=== PATIENT | female | born 1940 | race Caucasian/White ===

== ENCOUNTER → 2016-12-30 | Outpatient (CLI) | payer MEDICARE ==
--- NOTE | 2016-12-30 09:06 | XR ---
Left shoulder HISTORY: Bicipital tendinitis, left shoulder pain and strain 3 views of the left shoulder No comparisons Bone mineralization, joint spaces and alignment are maintained. Suspect a small distal acromial spur. Left lung apex as visualized is normal. Patient is post median sternotomy. Mild arthropathy present at the acromioclavicular joint. IMPRESSION: No acute abnormality. Additional findings above, correlate for impingement, follow-up MRI may be of benefit.
== END | disposition home or self-care (01) ==
LOC: RADXRMAIN 08:14
PROVIDERS: ATTEND Physician Assistant
DX: M75.22 Bicipital tendinitis, left shoulder (principal)

== ENCOUNTER → 2017-03-05 | Outpatient (CLI) | payer MEDICARE ==
--- NOTE | 2017-03-05 14:42 | MM ---
Reason for exam: additional evaluation requested from abnormal screening. Last mammogram was performed less than 1 month ago. History: Patient is postmenopausal. Benign stereotactic core biopsy of the right breast, May 18, 2003. Core biopsy of the right breast. Physical Findings: Nurse did not find any significant physical abnormalities on exam. MG 3D Work Up W/Cad LT CC, MLO, ML, spot compression CC, and spot compression MLO view(s) were taken of the left breast. Prior study comparison: February 23, 2017, bilateral MG screening mammo w CAD. December 07, 2015, bilateral MG 3d screening mammo w/cad. October 11, 2007, bilateral digital screening mammogram. There are scattered fibroglandular densities. Subareolar focal asymmetry shows increased density probably on the on the basis of the current mammographic technique, but was present back to 2007. No clear persisting abnormality seen on additional views. These results were verbally communicated with the patient and result sheet given to the patient on 03/05/17. ASSESSMENT: Incomplete: need additional imaging evaluation, BI-RAD 0 RECOMMENDATION: Ultrasound of the left breast. (periareolar).
--- NOTE | 2017-03-05 14:45 | USB ---
Reason for exam: additional evaluation requested from abnormal screening. History: Patient is postmenopausal. Benign stereotactic core biopsy of the right breast, May 18, 2003. Core biopsy of the right breast. US Breast Workup Limited LT Left breast demonstrates no cystic or solid lesion seen. A precautionary 6 month follow up is recommended. These results were verbally communicated with the patient and result sheet given to the patient on 03/05/17. ASSESSMENT: Probably benign, BI-RAD 3 RECOMMENDATION: Follow-up diagnostic mammogram of the left breast in 6 months.
== END | disposition home or self-care (01) ==
LOC: RADMAMWWP 13:20
PROVIDERS: ATTEND Family Medicine
DX: R92.8 Other abnormal and inconclusive findings on diagnostic imaging of breast (principal)
CPT/HCPCS: 76642; G0206; G0279

== ENCOUNTER → 2017-09-04 | Outpatient (CLI) | payer MEDICARE ==
--- NOTE | 2017-09-04 09:27 | MM ---
Reason for exam: follow-up at short interval from prior study. Last mammogram was performed 6 months ago. History: Patient is postmenopausal. Benign stereotactic core biopsy of the right breast, May 18, 2003. Core biopsy of the right breast. Physical Findings: Nurse did not find any significant physical abnormalities on exam. MG 3D Diag Mammo W/Cad LT CC, MLO, ML, and XCCL view(s) were taken of the left breast. Prior study comparison: March 05, 2017, left breast MG 3d work up w/cad LT. February 23, 2017, bilateral MG screening mammo w CAD. There is no discrete abnormality. No significant new findings when compared with previous films. These results were verbally communicated with the patient and result sheet given to the patient on 09/04/17. ASSESSMENT: Benign, BI-RAD 2 RECOMMENDATION: Return to routine screening mammogram schedule for both breasts. Back on schedule.
== END | disposition home or self-care (01) ==
LOC: RADMAMWWP 08:19
PROVIDERS: ATTEND Family Medicine
DX: R92.8 Other abnormal and inconclusive findings on diagnostic imaging of breast (principal)
CPT/HCPCS: 77065; G0279

== ENCOUNTER → 2017-10-29 | Outpatient (CLI) | payer MEDICARE ==
--- NOTE | 2017-10-29 09:12 | XR ---
EXAMINATION TYPE: XR chest 2V DATE OF EXAM: 10/29/2017 COMPARISON: None HISTORY: Abnormal weight loss TECHNIQUE: Frontal and lateral views of the chest are obtained. FINDINGS: There is a large soft tissue mass in the right upper lobe measuring approximately 10 cm in size. There is likely extension from the hilum to the pleural margin. Patient is post median sternot traci, the heart shows a normal contour. No evident pneumothorax. Apical pleural thickening present on the right. No pleural effusion. Prominent lung volumes suggest COPD. Postop changes noted to the abdo men, suture material noted. Bone mineralization is reduced. 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 Results relayed to Dr. Cayetano banuelos telephonically at the time of interpretation of this exam.
== END | disposition home or self-care (01) ==
LOC: RADXRMAIN 07:34
PROVIDERS: ATTEND Family Medicine
DX: R91.8 Other nonspecific abnormal finding of lung field (principal); R63.4 Abnormal weight loss
CPT/HCPCS: 71046

== ENCOUNTER → 2017-10-29 | Outpatient (CLI) | payer MEDICARE | END | disposition home or self-care (01) | LOC: RADMAMWWP 08:23 | PROVIDERS: ATTEND Family Medicine | DX: Z53.9 Procedure and treatment not carried out, unspecified reason (principal) ==